=== PATIENT | male | born 1995 | race Caucasian/White ===

== ENCOUNTER 2023-12-28 23:54 | Emergency (ER) | payer BC, OTHER ==
[2023-12-29 00:09] VITALS: BP 109/60; PULSE 96; RESP 18; TEMP 98.1; BMI 19.3
[2023-12-29] MEDS ORDERED: FAMOTIDINE 20 MG TABLET ONE (00:48)
[2023-12-29] MEDS ORDERED: diphenhydrAMINE HCL 25 MG CAPSULE (FP) PO ONE (00:48)
[2023-12-29] MEDS ORDERED: predniSONE 20 MG TABLET (UD) ONE (00:48)
[2023-12-29] MEDS: FAMOTIDINE 20 MG TABLET PO ONE (00:51)
[2023-12-29] MEDS: predniSONE 20 MG TABLET (UD) PO ONE (00:51)
[2023-12-29] MEDS: diphenhydrAMINE HCL 25 MG CAPSULE (FP) PO ONE (00:51)
== END 2023-12-29 01:48 | disposition home or self-care (01) ==
LOC: JER 23:54
DX: T78.1XXA Other adverse food reactions, not elsewhere classified, initial encounter (principal); R21 Rash and other nonspecific skin eruption; R09.89 Other specified symptoms and signs involving the circulatory and respiratory systems
CPT/HCPCS: 99283-25